=== PATIENT | female | born 1985 | race Two or more races ===

== ENCOUNTER 2016-07-03 00:49 | Observation (INO) | payer MEDICAID ==
[~2016-07-03 00:49] MED LIST: ALBUTEROL17 GM; CIPRO500 M1 PO; DICLEGIS DR 101 EACH; FLAGYL500 MG PO; H PO; IBUPROFEN800 M1 PO; NORCO 5-325 TA1 EACH PO; PERCOCET 5/3251 TAB PO; PRENATAL VITAM1 EAC7 PO; PRENATAL1 TAB; PRILOSEC20 MG PO; PROTONIX40 M2; PROTONIX40 M2 PO; TUMS300 MG PO; VISTARIL50 M1; VISTARIL50 MG PO; ZOFRAN ODT4 MG/UDTAB PO; ZOFRAN4 M1 PO
[2016-07-03] MEDS ORDERED: ACID CONTROLLER20 M1 (01:15)
[2016-07-03] MEDS ORDERED: VISTARIL50 M1 (01:16)
[2016-07-28] MEDS ORDERED: TUMS200 MG PO (11:57)
== END 2016-07-03 09:10 ==
LOC: LDR 00:49
PROVIDERS: ADMIT Obstetrics & Gynecology Maternal & Fetal Medicine
DX: O47.03 False labor before 37 completed weeks of gestation, third trimester (principal); Z3A.35 35 weeks gestation of pregnancy; Z88.0 Allergy status to penicillin; Z88.2 Allergy status to sulfonamides; Z91.018 Allergy to other foods
CPT/HCPCS: G0378; G0379

== ENCOUNTER 2016-07-28 12:45 | Inpatient (IN) | payer MEDICAID ==
[~2016-07-28 12:45] MED LIST changes: +ACID CONTROLLER20 M1; +TUMS200 MG PO
[2016-07-28 14:26] LABS: BASO % 0.1 % (0-2); EOS % 0.8 % (0-7); EOSINOPHIL ABSOLUTE COUNT 0.1 tho/cmm (0.0-0.7); HCT-HEMATOCRIT 31.9 % (34.0-49.0); HGB-HEMOGLOBIN 11.1 gm/dl (12.0-15.5); IMMATURE GRANULOCYTES ABSOLUTE 0.11 tho/cmm (0-0.03); IMMATURE GRANULOCYTES PERCENT 0.7 % (0-0.3); LYMPH % 19.9 % (20-45); LYMPH ABSOLUTE COUNT 3.3 tho/cmm (0.8-4.5); MCH (MEAN CORPUSCULAR HGB) 30.5 pg (28.0-32.0); MCHC MEAN CORPUSCULAR HGB CONC 34.8 % (32.0-36.0); MCV (MEAN CELL VOLUME) 87.6 fl (82.0-96.0); MEAN PLATELET VOLUME 11.2 cmc (9.4-12.4); MONO % 5.3 % (0-12); MONOCYTE ABSOLUTE COUNT 0.9 tho/cmm (0.0-1.2); NEUTROPHIL ABSOLUTE COUNT 12.1 tho/cmm (1.6-8.0); NEUTROPHIL-AUTOMATED 12.1 tho/cmm (1.6-8.0); NEUTROPHILS % 73.2 % (40-80); PLATELET COUNT 208 tho/cmm (150-450); RED BLOOD COUNT 3.64 mil/cmm (4.00-5.20); RED CELL DISTRIBUTION WIDTH 13.8 % (12.4-16.4); WHITE BLOOD COUNT 16.6 tho/cmm (4.0-10.0)
[2016-07-29 07:42] LABS: CORD BLOOD PH ARTERIAL 7.12 Units (7.18-7.38)
[2016-07-30 07:51] LABS: BASO % 0.1 % (0-2); EOS % 1.2 % (0-7); EOSINOPHIL ABSOLUTE COUNT 0.2 tho/cmm (0.0-0.7); HCT-HEMATOCRIT 28.8 % (34.0-49.0); HGB-HEMOGLOBIN 9.8 gm/dl (12.0-15.5); IMMATURE GRANULOCYTES ABSOLUTE 0.16 tho/cmm (0-0.03); IMMATURE GRANULOCYTES PERCENT 1.1 % (0-0.3); LYMPH % 27.3 % (20-45); LYMPH ABSOLUTE COUNT 4.1 tho/cmm (0.8-4.5); MCH (MEAN CORPUSCULAR HGB) 30.1 pg (28.0-32.0); MCV (MEAN CELL VOLUME) 88.3 fl (82.0-96.0); MEAN PLATELET VOLUME 11.2 cmc (9.4-12.4); MONO % 5.8 % (0-12); MONOCYTE ABSOLUTE COUNT 0.9 tho/cmm (0.0-1.2); NEUTROPHIL ABSOLUTE COUNT 9.8 tho/cmm (1.6-8.0); NEUTROPHIL-AUTOMATED 9.8 tho/cmm (1.6-8.0); NEUTROPHILS % 64.5 % (40-80); PLATELET COUNT 180 tho/cmm (150-450); RED BLOOD COUNT 3.26 mil/cmm (4.00-5.20); RED CELL DISTRIBUTION WIDTH 13.8 % (12.4-16.4); WHITE BLOOD COUNT 15.1 tho/cmm (4.0-10.0)
[2016-07-30] MEDS ORDERED: IBUPROFEN800 M1 PO (13:47)
[2016-07-30] MEDS ORDERED: ACID CONTROLLER20 M1 PO (13:49)
== END 2016-07-31 14:38 | DRG 775 ==
LOC: LDR 12:45 → OBGD 07-29 10:00
PROVIDERS: ADMIT Obstetrics & Gynecology Maternal & Fetal Medicine
PROC: 10E0XZZ Delivery of Products of Conception, External Approach (ICD-10-PCS; principal; 2016-07-29)
PROC: 3E033VJ Introduction of Other Hormone into Peripheral Vein, Percutaneous Approach (ICD-10-PCS; 2016-07-29)
DX: O99.334 Smoking (tobacco) complicating childbirth (principal); G40.909 Epilepsy, unspecified, not intractable, without status epilepticus; F17.210 Nicotine dependence, cigarettes, uncomplicated; O76 Abnormality in fetal heart rate and rhythm complicating labor and delivery; O26.893 Other specified pregnancy related conditions, third trimester; Z91.19 Patient's noncompliance with other medical treatment and regimen; Z3A.39 39 weeks gestation of pregnancy; Z37.0 Single live birth
CPT/HCPCS: J2590; J3010